=== PATIENT | male | born 1955 | race Caucasian/White ===

== ENCOUNTER → 2024-04-05 06:33 | Day surgery (SDC) | payer MEDICARE, BC, SELFPAY | LOC: GI 06:33 | PROVIDERS: ATTENDING PHYSICIAN Internal Medicine Gastroenterology | DX: Z12.11 Encounter for screening for malignant neoplasm of colon (principal); Z80.0 Family history of malignant neoplasm of digestive organs; K57.30 Diverticulosis of large intestine without perforation or abscess without bleeding; K64.8 Other hemorrhoids | CPT/HCPCS: G0105 ==

== ENCOUNTER → 2024-09-09 12:44 | Outpatient (REF) | payer MEDICARE, BC, SELFPAY | LOC: RAD 12:44 | PROVIDERS: ATTENDING PHYSICIAN Family Medicine | DX: E78.00 Pure hypercholesterolemia, unspecified (principal); Z77.090 Contact with and (suspected) exposure to asbestos | CPT/HCPCS: 71250; 75571 ==